=== PATIENT | male | born 1955 | race Caucasian/White ===

== ENCOUNTER 2020-02-04 16:49 | Inpatient (IN) | payer MEDICARE, MEDICAID, SELFPAY ==
[2020-02-04 16:57] VITALS: BP 190/99; PULSE 68; RESP 16; TEMP 36.6; O2SAT 96; BMI 30.7
--- NOTE | 2020-02-04 19:01 | ECG_ITS ---
Measurements Intervals [place] Rate: 62 P: 31 [place]: 172 QRS: -22 QRSD: 132 T: 51 QT: 417 QTc: 425 SINUS RHYTHM INTRAVENTRICULAR CONDUCTION DELAY [130+ ms QRS DURATION] POSSIBLE LEFT VENTRICULAR HYPERTROPHY [VOLTAGE CRITERIA PLUS LAE OR QRS WIDENING] POSSIBLE SEPTAL MYOCARDIAL INFARCTION , OF INDETERMINATE AGE [30 ms Q WAVE IN V1 V1/V2] Compared to ECG 08/20/2015 01:08:13 Intraventricular conduction delay now present Myocardial infarct finding now present Sinus tachycardia no longer present Electronically Signed On 02-05-2020 19:44:33 CDT by Jennifer Aleman M.D. [email or web address]
--- NOTE | 2020-02-04 19:01 | XR_ITS ---
WS: [id number] PORTABLE CHEST HISTORY: cp COMPARISON: 08/28/2015 Chronic emphysema. No pneumonia. Normal vasculature. No pleural effusion or pneumothorax. Cardiac size: Normal. Mediastinum/Aorta: Normal mediastinum. No osseous abnormality seen. XR/XR chest 1V portable [id number] IMPRESSION: Chronic emphysema. No pneumonia.
[2020-02-04 19:55] LABS: Basophils % 0.4 %; Eosinophils # 0.2 10^3/uL (0.0-0.8); Eosinophils % 2.5 %; Hematocrit 46.8 % (42.0-52.0); Hemoglobin 15.5 g/dL (11.7-16.6); Lymphocytes # 1.5 10^3/uL (0.8-4.8); Lymphocytes % 18.3 %; Mean Corpuscular HGB Conc 33.1 g/dL (30.0-36.0); Mean Corpuscular Hemoglobin 28.3 pg (28.0-34.0); Mean Corpuscular Volume 85.4 fL (80-94); Monocytes # 0.6 10^3/uL (0.2-0.9); Monocytes % 6.9 %; Neutrophils % 71.3 %; Nucleated Red Blood Cells % 0 %; Platelet Count 272 10^3/cmm (130-400); Red Blood Count 5.48 10^6/uL (4.1-5.3); White Blood Count 8.4 10^3/uL (4.0-10.0)
[2020-02-04 19:59] LABS: INR 0.91 (0.8-1.2)
[2020-02-04 20:05] LABS: Alanine Aminotransferase 24 U/L (0-41); Albumin Level 4.5 g/dL (3.5-5.2); Alkaline Phosphatase 68 IU/L (40-130); Anion Gap 17.1 (5-19); Aspartate Amino Transferase 33 U/L (0-40); Blood Urea Nitrogen 12 mg/dL (8-23); Calcium 9.2 mg/dL (8.5-10.5); Carbon Dioxide 21 mmol/L (22-29); Chloride 101 mmol/L (98-107); Glomerular Filtration Rate 97.6 mL/min (90-130); Glucose 94 mg/dL (65-115); Osmolality Calculated 276 mOsm/kg (285-295); Potassium 4.1 mmol/L (3.5-5.1); Sodium 135 mmol/L (136-145); Total Bilirubin 0.5 mg/dL (0.15-1.2); Total Protein 7.5 g/dL (6.6-8.7)
[2020-02-04 20:16] LABS: Troponin(5th) Baseline 143 ng/mL (0-15)
--- NOTE | 2020-02-04 20:41 | ED_ITS ---
HPI - Chest Pain General: Chief Complaint: Chest Pain Stated Complaint: CHEST PAINS Time Seen by Provider: 02/04/20 20:26 Source: patient Mode of arrival: ambulatory Limitations: no limitations History of Present Illness: HPI narrative: 64-year-old male who states he had chest pain throughout the day. He states is been fairly constant radiates to his left arm. He has no heart history that he knows of. He states he is a long-term smoker. He denies any known history of high blood pressure. MD complaint: chest pain Onset (ago): hour(s) Onset: during rest Pain location: substernal Pain radiation: left arm Severity: moderate Quality: aching Relieving factors: nothing Exacerbating factors: nothing Associated symptoms: Deny abdominal pain, dyspnea, fever(s), nausea or vomiting Review of Systems Const: Denies: fever, chills, body aches or change in appetite Eyes: Denies: blurry vision or eye discomfort ENMT: Denies: throat pain or dental pain Card: Reports: chest pain Resp: Denies: shortness of breath GI: Denies: abdominal pain, nausea, vomiting or diarrhea : Denies: painful urination Musc: Denies: neck pain or back pain Skin/Breast: Denies: rash Neuro: Denies: headache Psych: Denies: depression Tino/Lymph: Denies: easy bruising All/Imm: Denies: hives PFSH ED PFSH: Medical History Benign prostatic hyperplasia with lower urinary tract symptoms Eczema of lower extremity Hypothyroid Surgical History H/O colectomy 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,4th,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 Family History Brother CAD (coronary artery disease) Cancer Pancreatic Mother Dementia Alzheimers Social History Smoking and tobacco status: current every day smoker Alcohol intake: never Physical Exam Const: COMMON NORMALS: no apparent distress, oriented x3 and healthy appearing HENMT: COMMON NORMALS: normocephalic and head/scalp atraumatic HEAD & SCALP: normocephalic and atraumatic Eye: COMMON NORMALS: PERRL and EOMs intact bilaterally PUPIL: Yes PERRL Neck/C-Spine: COMMON NORMALS: full ROM and supple Chest: COMMONS NORMALS: inspection of chest normal and palpation of chest normal Resp: COMMON NORMALS: normal respiratory effort, no retractions, no use of accessory muscles and clear to auscultation bilaterally AUSCULTATION: clear to auscultation bilaterally Cardio: COMMON NORMALS: regular rate, regular rhythm and no murmurs RATE: regular rate RHYTHM: regular rhythm GI: COMMON NORMALS: normal to inspection, nondistended, normoactive bowel sounds, soft to palpation, non-tender and no masses PALPATION: Yes soft Extremity: COMMON NORMALS: normal to inspection and full ROM Neuro: COMMON NORMALS: oriented x3, moves all extremities and no focal motor deficits Psych: COMMON NORMALS: mental status grossly normal, thought process normal and cooperative THOUGHT PROCESS: normal thought process Skin: COMMON NORMALS: no rashes or lesions noted and no wounds GENERAL SKIN EXAM: no rashes or lesions noted Course Vital Signs: Vital signs: Vital Signs Temperature 97.8 F 02/04/20 16:57 Pulse Rate 68 02/04/20 16:57 Respiratory Rate 16 02/04/20 16:57 Blood Pressure 190/99 02/04/20 16:57 Pulse Oximetry 96 02/04/20 16:57 MDM - Chest Pain MDM Narrative: Medical decision making narrative: Patient presents here with chest pain and mildly elevated troponin with possible N STEMI. Patient given aspirin here along with Lovenox. I spoke to hospitalist will admit. I also consulted cardiology. He is currently pain-free here and has been seen by the hospitalist Dr. Evans in the ER. Patient has no signs of pulmonary embolism. Lab Data: Labs: Lab Results 02/04/20 02/04/20 02/04/20 Range/Units 19:18 19:18 19:18 WBC 8.4 (4.0-10.0) 10^3/ uL RBC 5.48 H (4.1-5.3) 10^6/u L Hgb 15.5 (11.7-16.6) g/dL Hct 46.8 (42.0-52.0) % MCV 85.4 (80-94) fL MCH 28.3 (28.0-34.0) pg MCHC 33.1 (30.0-36.0) g/dL RDW 14.0 (12.1-15.1) % Plt Count 272 (130-400) 10^3/c mm MPV 10.0 (7.4-10.4) fL Neut % (Auto) 71.3 % Lymph % (Auto) 18.3 % Sebastian % (Auto) 6.9 % Eos % (Auto) 2.5 % Baso % (Auto) 0.4 % Neut # (Auto) 6.0 (1.8-7.7) 10^3/u L Lymph # (Auto) 1.5 (0.8-4.8) 10^3/u L Sebastian # (Auto) 0.6 (0.2-0.9) 10^3/u L Eos # (Auto) 0.2 (0.0-0.8) 10^3/u L Baso # (Auto) 0.0 (0.0-0.1) 10^3/u L Nucleated RBC % (a uto) 0 % Nucleated RBCs # 0.0 /100WBC PT 12.50 (10.5-13.3) SECO NDS INR 0.91 (0.8-1.2) Sodium 135 L (136-145) mmol/L Potassium 4.1 (3.5-5.1) mmol/L Chloride 101 (98-107) mmol/L Carbon Dioxide 21 L (22-29) mmol/L Anion Gap 17.1 (5-19) BUN 12 (8-23) mg/dL Creatinine 0.8 (0.7-1.2) mg/dL GFR Calculation 97.6 (90-130) mL/min Glucose 94 (65-115) mg/dL Calculated Osmolal ity 276 L (285-295) mOsm/k g Calcium 9.2 (8.5-10.5) mg/dL Total Bilirubin 0.5 (0.15-1.2) mg/dL AST 33 (0-40) U/L ALT 24 (0-41) U/L Alkaline Phosphata se 68 (40-130) IU/L Troponin T Baselin e (0-15) ng/mL Troponin T 120 Min [place] (0-15) ng/mL Delta Troponin T (0-10) ABS# Total Protein 7.5 (6.6-8.7) g/dL Albumin 4.5 (3.5-5.2) g/dL Globulin 3.0 (1.3-4.6) g/dL 02/04/20 02/04/20 Range/Units 19:18 20:54 WBC (4.0-10.0) 10^3/ uL RBC (4.1-5.3) 10^6/u L Hgb (11.7-16.6) g/dL Hct (42.0-52.0) % MCV (80-94) fL MCH (28.0-34.0) pg MCHC (30.0-36.0) g/dL RDW (12.1-15.1) % Plt Count (130-400) 10^3/c mm MPV (7.4-10.4) fL Neut % (Auto) % Lymph % (Auto) % [place] % (Auto) % Eos % (Auto) % Baso % (Auto) % Neut # (Auto) (1.8-7.7) 10^3/u L Lymph # (Auto) (0.8-4.8) 10^3/u L Sebastian # (Auto) (0.2-0.9) 10^3/u L Eos # (Auto) (0.0-0.8) 10^3/u L Baso # (Auto) (0.0-0.1) 10^3/u L Nucleated RBC % (a uto) % Nucleated RBCs # /100WBC PT (10.5-13.3) SECO NDS INR (0.8-1.2) Sodium (136-145) mmol/L Potassium (3.5-5.1) mmol/L Chloride (98-107) mmol/L Carbon Dioxide (22-29) mmol/L Anion Gap (5-19) BUN (8-23) mg/dL Creatinine (0.7-1.2) mg/dL GFR Calculation (90-130) mL/min Glucose (65-115) mg/dL Calculated Osmolal ity (285-295) mOsm/k g Calcium (8.5-10.5) mg/dL Total Bilirubin (0.15-1.2) mg/dL AST (0-40) U/L ALT (0-41) U/L Alkaline Phosphata se (40-130) IU/L Troponin T Baselin e 143 H* (0-15) ng/mL Troponin T 120 Min [place] 291.4 H (0-15) ng/mL Delta Troponin T 148.4 H* (0-10) ABS# Total Protein (6.6-8.7) g/dL Albumin (3.5-5.2) g/dL Globulin (1.3-4.6) g/dL Imaging Data^: CXR: Attestation: I personally reviewed and interpreted this imaging study as follows: My impression: no acute abnormality EKG Data^: EKG 1: Attestation: I personally reviewed and interpreted this EKG as follows: EKG interpretation date: 02/04/20 EKG interpretation time: 19:04 Interpretation: sinus guadalupe hr [address] or t wave abnormalities qrs 132 qtc 410 Discharge Plan Discharge Patient Disposition: Admitted As Inpatient Clinical Impression: Non-ST elevation [place] (NSTEMI) Condition: Stable Referrals: Megan Cosme DO [Primary Care Provider] - Coding Level of Care Code ED Surgical Assistant for Chg Fwd Exam Comprehensive
--- NOTE | 2020-02-04 21:01 | ECG_ITS ---
Measurements Intervals [place] Rate: 52 P: 39 [place]: 183 QRS: -9 QRSD: 116 T: 17 QT: 432 QTc: 405 SINUS BRADYCARDIA MODERATE VOLTAGE CRITERIA FOR LVH, CONSIDER NORMAL VARIANT [MEETS CRITERIA IN ONE OF: R(aVL), S(V1), R(V5), R(V5/V6)+S(V1)] POSSIBLE SEPTAL MYOCARDIAL INFARCTION , OF INDETERMINATE AGE [30 ms Q WAVE IN V1/V2] Compared to ECG 08/20/2015 01:08:13 Myocardial infarct finding now present Sinus tachycardia no longer present Electronically Signed On 02-05-2020 19:47:08 CDT by Jennifer Aleman M.D. [id number]
[2020-02-04] MEDS: aspirin 81 mg Chew Tablet 324 MG PO (21:30)
[2020-02-04] MEDS: enoxaparin 100 mg/mL Syringe SUBCUT (21:31)
[2020-02-04 21:35] LABS: Troponin 5 2HR 291.4 ng/mL (0-15); Troponin 5 2HR Delta 148.4 ABS# (0-10)
[2020-02-04] MEDS: nitroglycerin 0.4 mg sublingual Tablet SUBLINGUAL (21:35)
[2020-02-04 21:41] VITALS: BP 190/101; PULSE 60; RESP 19; O2SAT 94
[2020-02-04 22:02] VITALS: BP 175/91; PULSE 54; RESP 18; O2SAT 94
--- NOTE | 2020-02-04 22:29 | PM.CONSULT ---
Providers/Reason For Consult Consulting Physican/Specialty*: Cardiology Reason for Consult*: Non-ST elevation [place], hypertensive urgency Primary Care Provider: Megan Cosme DO History of Present Illness History of Present Illness Lennox Petty is a 64 year old male presented to emergency room with chest pain going on since this morning on presentation generation 5 troponin was 143 which increased to 148 and 291. He was given Lovenox and treated with aspirin. Twelve-lead EKG showed sinus bradycardia otherwise no significant ST?T changes. Currently chest pain has reduced on a scale of 10 to 2. Patient is a smoker but denies history of diabetes his blood pressure is moderately elevated. Other past medical history significant for hypothyroidism. He denies any prior episodes of chest pain. He denies prior history of heart problem out of your shortness of breath presyncope or syncope. He denies history of dyslipidemia. Review of Systems Const: Denies: fever, chills, body aches or change in appetite Eyes: Denies: blurry vision or eye discomfort ENMT: Denies: throat pain or dental pain Card: Reports: chest pain Resp: Denies: shortness of breath GI: Denies: abdominal pain, nausea, vomiting or diarrhea : Denies: painful urination Musc: Denies: neck pain or back pain Skin/Breast: Denies: rash Neuro: Denies: headache Psych: Denies: depression or sleeping more Tino/Lymph: Denies: easy bruising All/Imm: Denies: hives Meds/Allergies Home Medications and Allergies Home Medications Medication Instructions Recorded Confirmed Last Taken Type levothyroxine 100 mcg capsule 100 mcg PO QDAY 30 Days #30 cap 10/31/19 10/31/19 Unknown Rx omega-3 fatty acids 1,000 mg 1,000 mg PO DAILY 10/31/19 10/31/19 Unknown History capsule tamsulosin 0.4 mg capsule 0.4 mg PO QDAY 30 Days #30 cap 10/31/19 10/31/19 Unknown Rx triamcinolone acetonide 0.1 % 1 applic TOPICAL BID #30 gm 10/31/19 10/31/19 Unknown Rx topical cream Allergies Allergy/AdvReac Type Severity Reaction Status Date / Time codeine Allergy unknown Unverified 10/22/19 16:35 PFSH Acute PFSH: Medical History (Updated 02/04/20 @ 22:36 by Jennifer Aleman MD) Benign prostatic hyperplasia with lower urinary tract symptoms Eczema of lower extremity Essential hypertension Hypothyroid Surgical History H/O colectomy 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 NECK: No jugular vein distension. HEENT: No cyanosis. No icterus. No pallor. HEART: Regular S1 and S2. No murmur, rub or gallop. LUNGS: Clear to auscultate bilaterally. ABDOMEN: Soft, nontender and nondistended. Positive bowel sounds. No guarding, rebound or tenderness. CENTRAL NERVOUS SYSTEM: Grossly nonfocal. EXTREMITIES: Lower extremities without edema bilaterally. Data Labs: Other Labs: SINUS BRADYCARDIA MODERATE VOLTAGE CRITERIA FOR LVH, CONSIDER NORMAL VARIANT [MEETS CRITERIA IN ONE OF: R(aVL), S(V1), R(V5), R(V5/V6)+S(V1)] POSSIBLE SEPTAL MYOCARDIAL INFARCTION , OF INDETERMINATE AGE [30 ms Q WAVE IN V1/V2] Compared to ECG 08/20/2015 01:08:13 Myocardial infarct finding now present Sinus tachycardia no longer present A&P Assessment and plan (1) Non-ST elevation VT (NSTEMI): Patient presentation consistent with non-ST elevation VT. Currently is chest pain-free we will try to control his blood pressure. I will load him with Plavix he has already been given Lovenox. We will add statin to the regimen due to be bradycardia beta-suleiman is not warranted. I am planning to proceed with coronary angiogram tomorrow. Patient has been discussed all risk benefit and alternative for the procedure. He would like to proceed with it. Status: Acute (2) Essential hypertension: Blood pressure is moderately elevated it was 190 and then 175. I will keep him on nitro drip which will also control his blood pressure along with chest pain. Status: Acute Coding Level of Care Code New Pt Acute Supervisor Cytogenetic Laboratory for g Fwd Patient Type New History Detailed Exam Detailed Medical Decision Making Moderate Complexity Diagnoses Non-ST elevation VT (NSTEMI) I21.4 Essential hypertension I10
[2020-02-04] MEDS: clopidogrel 300 mg Tablet PO (23:18)
[2020-02-04] MEDS: nitroglycerin 1 gm/inch oint Pkt 1 INCH TOPICAL (23:18)
[2020-02-04 23:20] VITALS: BP 149/74; PULSE 56; RESP 20; O2SAT 95
--- NOTE | 2020-02-04 23:26 | PM.HP ---
Providers/Chief Complaint Primary Care Provider: Megan Cosme DO Chief Complaint: CHEST PAINS History of Present Illness Lennox Petty is a 64 year old male with past medical history of GERD, BPH, hypertension, hypothyroidism who is presenting with complaints of substernal chest pain. Chest pain started this morning suddenly. Substernal, described as pressure moderate to severe in intensity. No modifying factors. He reports associated heartburn and burping. Denies any similar episodes in the past. He reports family history of heart disease. He is a smoker. He denies associated diaphoresis, shortness of breath, cough, palpitations, dizziness or lightheadedness. Review of Systems General: Reports: 10 or more systems reviewed and unremarkable except in HPI and below Medications/Allergies Home Medications Medication Instructions Recorded Confirmed Last Taken Type levothyroxine 100 mcg capsule 100 mcg PO QDAY 30 Days #30 cap 10/31/19 10/31/19 Unknown Rx omega-3 fatty acids 1,000 mg 1,000 mg PO DAILY 10/31/19 10/31/19 Unknown History capsule tamsulosin 0.4 mg capsule 0.4 mg PO QDAY 30 Days #30 cap 10/31/19 10/31/19 Unknown Rx triamcinolone acetonide 0.1 % 1 applic TOPICAL BID #30 gm 10/31/19 10/31/19 Unknown Rx topical cream Allergies Allergy/AdvReac Type Severity Reaction Status Date / Time codeine Allergy unknown Unverified 10/22/19 16:35 PFSH Acute PFSH: Medical History (Updated 02/04/20 @ 22:36 by Jennifer Aleman MD) Benign prostatic hyperplasia with lower urinary tract symptoms Eczema of lower extremity Essential hypertension Hypothyroid Surgical History H/O colectomy 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,4th,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0) 02/04/20 19:18 MCV 85.4 fL (80-94) 02/04/20 19:18 MCH 28.3 pg (28.0-34.0) 02/04/20 19:18 MCHC 33.1 g/dL (30.0-36.0) 02/04/20 19:18 RDW 14.0 % (12.1-15.1) 02/04/20 19:18 Plt Count 272 10^3/cmm (130-400) 02/04/20 19:18 MPV 10.0 fL (7.4-10.4) 02/04/20 19:18 Neut % (Auto) 71.3 % 02/04/20 19:18 Lymph % (Auto) 18.3 % 02/04/20 19:18 [place] % (Auto) 6.9 % 02/04/20 19:18 Eos % (Auto) 2.5 % 02/04/20 19:18 Baso % (Auto) 0.4 % 02/04/20 19:18 Neut # (Auto) 6.0 10^3/uL (1.8-7.7) 02/04/20 19:18 Lymph # (Auto) 1.5 10^3/uL (0.8-4.8) 02/04/20 19:18 [place] # (Auto) 0.6 10^3/uL (0.2-0.9) 02/04/20 19:18 Eos # (Auto) 0.2 10^3/uL (0.0-0.8) 02/04/20 19:18 Baso # (Auto) 0.0 10^3/uL (0.0-0.1) 02/04/20 19:18 Nucleated RBC % (auto) 0 % 02/04/20 19:18 Nucleated RBCs # 0.0 /100WBC 02/04/20 19:18 PT 12.50 SECONDS (10.5-13.3) 02/04/20 19:18 INR 0.91 (0.8-1.2) 02/04/20 19:18 Sodium 135 mmol/L (136-145) L 02/04/20 19:18 Potassium 4.1 mmol/L (3.5-5.1) 02/04/20 19:18 Chloride 101 mmol/L (98-107) 02/04/20 19:18 Carbon Dioxide 21 mmol/L (22-29) L 02/04/20 19:18 Anion Gap 17.1 (5-19) 02/04/20 19:18 BUN 12 mg/dL (8-23) 02/04/20 19:18 Creatinine 0.8 mg/dL (0.7-1.2) 02/04/20 19:18 GFR Calculation 97.6 mL/min (90-130) 02/04/20 19:18 Glucose 94 mg/dL (65-115) 02/04/20 19:18 Calculated Osmolality 276 mOsm/kg (285-295) L 02/04/20 19:18 Calcium 9.2 mg/dL (8.5-10.5) 02/04/20 19:18 Total Bilirubin 0.5 mg/dL (0.15-1.2) 02/04/20 19:18 AST 33 U/L (0-40) 02/04/20 19:18 ALT 24 U/L (0-41) 02/04/20 19:18 Alkaline Phosphatase 68 IU/L (40-130) 02/04/20 19:18 Troponin T Baseline 143 ng/mL (0-15) H* 02/04/20 19:18 Troponin T 120 Minute 291.4 ng/mL (0-15) H 02/04/20 20:54 Delta Troponin T 148.4 ABS# (0-10) H* 05/11/20 20:54 Total Protein 7.5 g/dL (6.6-8.7) 02/04/20 19:18 Albumin 4.5 g/dL (3.5-5.2) 02/04/20 19:18 Globulin 3.0 g/dL (1.3-4.6) 02/04/20 19:18 Lungs seem to be clear on chest x-ray. Please review official radiology report when it is available. EKG. No acute ischemic changes. Mild bradycardia. LVH. A&P Additional A&P Information Non-ST elevation [place]. The patient has elevated troponin. Was seen and evaluated by Dr. Aleman. I appreciate his help. The patient is given aspirin and loaded with Plavix and full dose of Lovenox. He will undergo cardiac catheterization tomorrow morning. I am also ordering Lipitor. Fasting lipids in the morning. Beta-suleiman is not feasible at this time due to bradycardia. Uncontrolled hypertension. I will order as needed hydralazine. Maintenance medications will be considered tomorrow after his procedure. History of BPH. We will continue his home Flomax. History of hypothyroidism. We will continue home Synthroid. We will check his TSH level. DVT prophylaxis. Received full dose of Lovenox. CODE STATUS. He wants to be full code. The plan of care was discussed with the patient. He verbalized understanding and agreement. Attestations Medical Necessity Statement*: Observation Coding Level of Care Code Acute Cost Estimator for Gerry Ivey
[2020-02-04 23:30] VITALS: RESP 20
[2020-02-05] VITALS (28 sets, daily range): BP systolic 96–151; BP diastolic 51–80; PULSE 48–68; RESP 16–22; TEMP 36.7–37.1; O2SAT 90–98
[2020-02-05 01:42] LABS: Basophils % 0.3 %; Eosinophils # 0.2 10^3/uL (0.0-0.8); Eosinophils % 2.6 %; Hematocrit 42.2 % (42.0-52.0); Hemoglobin 14.1 g/dL (11.7-16.6); Lymphocytes # 1.4 10^3/uL (0.8-4.8); Lymphocytes % 20.7 %; Mean Corpuscular HGB Conc 33.4 g/dL (30.0-36.0); Mean Corpuscular Hemoglobin 28.5 pg (28.0-34.0); Mean Corpuscular Volume 85.3 fL (80-94); Mean Platelet Volume 9.9 fL (7.4-10.4); Monocytes # 0.4 10^3/uL (0.2-0.9); Neutrophils # 4.7 10^3/uL (1.8-7.7); Neutrophils % 69.8 %; Nucleated Red Blood Cells % 0 %; Platelet Count 249 10^3/cmm (130-400); Red Blood Count 4.95 10^6/uL (4.1-5.3); Red Cell Distribution Width 14.2 % (12.1-15.1); White Blood Count 6.7 10^3/uL (4.0-10.0)
[2020-02-05 01:59] LABS: Estmated Average Glucose 126
[2020-02-05 02:00] LABS: Anion Gap 16.1 (5-19); Blood Urea Nitrogen 13 mg/dL (8-23); Calcium 9.1 mg/dL (8.5-10.5); Carbon Dioxide 24 mmol/L (22-29); Chloride 104 mmol/L (98-107); Glomerular Filtration Rate 97.6 mL/min (90-130); Glucose 97 mg/dL (65-115); Magnesium 2.3 mg/dL (1.7-2.3); Osmolality Calculated 286 mOsm/kg (285-295); Potassium 4.1 mmol/L (3.5-5.1); Sodium 140 mmol/L (136-145)
[2020-02-05 02:01] LABS: Chol HDL Ratio 4.33 mg/dL (1.0-5.00); Cholesterol 117 mg/dL (0-200); HDL Cholesterol 27 mg/dL (60-100); LDL Cholesterol Calculated 43 mg/dL (50-129); LDL HDL Ratio 1.59 RATIO (0.00-3.22); Triglycerides 235 mg/dL (0-150)
[2020-02-05 02:07] LABS: Troponin 5 6HR 563.6 ng/mL (0-15)
[2020-02-05 02:08] LABS: Troponin 5 6HR Delta 420.6 ng/L (0-12)
[2020-02-05 02:59] LABS: Thyroid Stimulating Hormone 4.66 uIU/mL (0.27-4.20)
[2020-02-05] MEDS: diphenhydrAMINE 50 mg Capsule PO (07:48)
[2020-02-05] MEDS: sodium chloride 0.9% 1,000 ML 50 ML IV (07:48)
[2020-02-05] MEDS: tamsulosin 0.4 mg Capsule PO (08:19)
[2020-02-05] MEDS: atorvastatin 40 mg Tablet 80 MG PO (08:19)
[2020-02-05] MEDS: levothyroxine 100 mcg Tablet PO (08:19)
--- NOTE | 2020-02-05 08:30 | XACV_ITS ---
Exam Room: [facility] Ht: 180 cm Wt: 100 kg BSA: 2.26 m2 Gender: Male : 1955 Any Known Allergies: Codeine Exam Priority: Routine Indication(s): - NSTEMI Procedure(s): Procedure Description: Diagnostic procedure Procedure Description: PCI procedure Procedure Description: Drug Eluting Coronary Stent Procedure Description: Coronary Angiography Diagnostic Findings LM has 0% stenosis. LAD has 0% stenosis. CX has 0% stenosis. RCA has 0% stenosis. 1st Diagonal Coronary Artery: Severe 99% stenosis, ODALYS: 1 flow. Coronary angiography shows right dominance. PCI Status: Urgent PCI Indication: NSTE - ACS Interventional Findings Successful PCI to proximal diagonal-1. Lesion was prepared with 2.25 x 15 mm AB TREK balloon, followed by deployment of COLLETTE INTEGRITY 2.5 x 12 mm stent posted at high GUICHO of 14. Stent was then post-dilated with serial dilatation of NC EUPHORA 2.5 x 8 at 8ATM in its entire length to ensure proper approximation. Excellent angiographic result with ODALYS-3 flow was achieved. . Conclusions No significant disease noted in the Left Main, LAD, Circumflex, or RCA coronary arteries. 1st Diagonal Coronary Artery was successfully treated with . Recommendations 1-Return to inpatient for close monitoring and routine cath care 2-Risk factor modification for secondary prevention 3-Statin and aspirin 81 mg life--long, if tolerated 4-Continue Plavix 75mg p.o. daily for at least one year. We will assess at the end of one year again to continue if further or not 5-Continue optimal medical management 6-Follow up with Dr. Aleman in four weeks and your primary care in 10 days . Diagnostic RX Recommendation: PCI w/o planned CABG Pressures Phase:Rest AO : 116 mmHg / 77 mmHg ( 94 mmHg ) @ 5:55:00 AM Clinical Evaluation EBL: 5mL-10mL Procedural Details Procedure Consent Obtained. Pre-Procedure Time Out. Identified patient by full name and date of as verbalized by the patient/guarantor. Does the consent match the physician's order: Yes. Accurate & Complete Informed Consent: Yes. Inpatient/Outpatient History & Physical on Chart: Yes. If H&P is completed, is and addenduem needed: Yes; If yes, is the addendum complete: Yes. Visualize and Verify Site with Patient/Guarantor: N/A. Relevant Radiology Images available: N/A. Pre-op teaching completed and patient verbalized understanding. The risks, benefits, and alternatives of sedation and/or procedure were discussed by physician. The patient agrees to continue. Procedure started. [facility] Clinical Fraility Score: 3: Managing Well. Nutritionist Indications: ACS <= 24 hours. Chest Pain Symptom Assessment: Typical Angina Symptoms. Cardiovascular Instability: No,. Correct patient, site and procedure confirmed by cath team. Current diagnosis: NSTEMI. PERRLA. Strong, equal hand event promotions coordinator bilaterally. Lungs clear x 5 lobes. IV Site on Arrival: 20 gauge in the left forearm. Pre Procedural Pulses: bilateral dorsalis pedis was Doppled. Pre Procedural Pulses: bilateral posterior tibial was Doppled. Oxygen started at 2liters/min via nasal canula. right radial was prepped with chloroprep then draped in the usual sterile fashion. Baseline sample Acquired. HR: 52 BPM. Physician notified. Patient's family unavailable. Equipment: 6F - Radial. Physician arrived. Cardiac Cath Pack. ACIST Manifold Kit Model BT 2000. Heparinized Saline (2 units/mL), 1000 mL bag. Current Diagnosis : NSTEMI. Physician scrubbed in. Immediate Pre-Procedure Time Out. Correct Patient: Yes; Correct Procedure: Yes; Correct Site: Yes; Correct Patient Position: Yes; Correct Supplies: Yes; Dried Flammable Prep: Yes; Blood Products Available: N/A;. Lidocaine 1% infiltrated to the right radial. Arterial access obtained. A TR 5FR Radial TIG 4.0 110cm was advanced over the wire and used for Left coronary angiography. Multiple views taken of left coronary artery. Catheter redirected to the RCA. Multiple views taken of right coronary artery. Catheter out. Inventory is [facility] 6 FR XB 3.5 GUIDE. PCI Indication: NSTE. 6 bermudian XB 3.5 guide catheter was inserted over the wire. [place] repositioned to [facility]. Balloon inserted. Inflation number : 1 A AB TREK [id number] RX BALLOON was prepped and advanced across the 1st Diag , then inflated to 15 GUICHO for 0:15 seconds. Balloon removed. Stent inserted. Inflation Number : 2 A [place] COLLETTE 2.5X12 SHANE -Lot Number# [id number], exp12/17/2020 was prepped and advanced across the 1st Diag. The stent was deployed at 14 GUICHO for 0:23 seconds. Stent balloon removed. Balloon inserted. Inflation number : 3 A [place] EUPHORA RX [id number] BALLOON was prepped and advanced across the 1st Diag , then inflated to 8 GUICHO for 0:12 seconds. Balloon out. Results checked. Wire out. ACT drawn. Results 195 seconds. Therapeutic limits - pre-heparin administration 90-150 seconds and monitoring heparin during a vascular procedure >250 seconds. Guide catheter out. A TR Band was successful obtaining hemostatsis at the Right Radial artery insertion site. TR band placed. Hemostasis obtained. Post Procedure: Pulses reassessed and unchanged. PERRLA. Strong, equal hand event promotions coordinator bilaterally. No VTE prophylaxis required. Medication's Wasted: Lidocaine 1% = 18 mL. Medication's Wasted: Nitro = 49.6 mg. Medication's Wasted: Other = Versed 1 mg. Medication's Wasted: Other = Fentanyl 50 mcg. Total IV fluids: 75 mL. Fluoro: 7:55. Contrast type used: Visipaque 320 mgI/mL, 500 mL bottle. [id number]. Post-op diagnosis: NSTEMI. Complications: None. Estimated blood loss: 5mL-10mL. Procedure completed. Patient transferred by wheelchair to [address] [place] [address]. Site: Right Radial artery Sheath Size: 6 Fr Hemostasis Method: TR Band Hemostasis Success: Successful Procedure Medications Start: 10:41 AM Stop: 10:41 AM Medication: Versed Amount: 1 mg Route: I.V. Start: 10: AM Stop: 10: AM Medication: Fentanyl Amount: 50 mcg Route: I.V. Start: 10: AM Stop: : AM Medication: Versed Amount: 1 mg Route: I.V. Start: 10: AM Stop: : AM Medication: Fentanyl Amount: 50 mcg Route: I.V. Start: 10:54 AM Stop: :54 AM Medication: Heparin Amount: 5000 units Route: I.V. Start: 11:00 AM Stop: 11:00 AM Medication: Heparin Amount: 4000 units Route: I.V. Start: 11:17 AM Stop: 11:17 AM Medication: Nitrogylcerin Amount: 200 mcg Route: I.A. Start: 11:19 AM Stop: 11:19 AM Medication: Versed Amount: 1 mg Route: I.V. Start: 11:19 AM Stop: 11:19 AM Medication: Fentanyl Amount: 50 mcg Route: I.V. Start: 11:25 AM Stop: 11:25 AM Medication: Heparin Amount: 2000 units Route: I.V. I, the attending physician, have reviewed and verified all procedure medications. Yes, all medications given per verbal order History/Risk Factors Hypertension: Yes Dyslipidemia: No Peripheral Arterial Disease (PAD): No Myocardial Infarction (NE): No Obesity: No Prior Interventions Valve Surgery: No Report Signatures Finalized by:Jennifer Aleman MD on 02/19/2020 12:33:18 PM
--- NOTE | 2020-02-05 11:16 | PC.CHAP ---
Pastoral Care Encounter/Spiritual Assessment Type of Contact [] Declined recycle coordinator visit [] Patient/Family/Request visit [] Outpatient visit [] Follow-up visit [] Physician referral [] Code/Alert [x] Routine visit [] Staff referral [] Actively dying [] Patient sleeping [] Family support [] [] Out of room [] Palliative care [] [x] Receiving care in room [] Pre-surgical visit [] Trauma [] Long length of stay [] ICU visit [] Other: Relational/Emotional Strength [x] Patient feels connected with others/family/visitors/staff [] Distress [] Loneliness/isolation [] Abandonment Spirituality of Patient [x] Person of Meche [] Attends Cheondoism of their Meche [x] Believes in Prayer [] Reads Bible or Protestant materials [] There are Spiritual issues to be addressed Rail Layer Interventions [x] Prayer [x] Active listening [x] Non-anxious presence [x] Spiritual/emotional support [] Crisis/trauma care [x] Spiritual counseling [] Bereavement support [] Provided bereavement packet [] Provided Bible/devotional materials [] Provided toy/stuffed animal, coloring book to patient or family member [] Provided Communion [] Anointing/[place] [] Salvation [x] Completed spiritual assessment [] Other: Impact on Illness or Injury [] Angry [] Fearful [x] Anxious [] Often cries [] Exhaustion [] Unable to work [] Unable to attend restorationist [] Unable to walk/stand [] Unable to read [] Unable to drive [] Unable to eat/drink [] Unable to sleep [] Unable to be with family [] Patient intubated [] Other: Summary Chest pain, Will get tests done today, not sure what needs to be done, has a good attitude Time spent with patient 10 mins
--- NOTE | 2020-02-05 11:25 | W.PM.OPSUD ---
Surgery/Procedure H&P Update DATE OF PROCEDURE: February 05, 2020 DATE H&P PERFORMED: 02/05/20 H&P UPDATE INFORMATION: I have reviewed H&P completed within last 30 days, I have examined patient prior to procedure and No changes to prior documentation PLANNED PROCEDURE: Operation Date: 02/05/20 08:30 Proposed Procedures p Cardiac Catheterization(Not Applicable) - Jennifer Aleman MD PATIENT REASSESSED PRIOR TO SEDATION, WITH NO CHANGE NOTED: Yes PHYSICAL EXAM: alert, oriented x 3, clear to auscultation bilaterally and regular rate & rhythm AIRWAY EVAL/ANESTHESIA PLAN: normal airway, see other exam findings, ASA II and Risks, benefits & alternatives of sedation and/or procedure discussed Related Problem List Diagnoses (1) Non-ST elevation [place] (NSTEMI): (2) Essential hypertension:
--- NOTE | 2020-02-05 11:34 | P.PN_ITS ---
Subjective Subjective: Interval history: Status post morning angiogram found to have subtotally occluded 99% proximal moderate size and caliber diagonal 1 which was a culprit vessel treated with balloon angioplasty followed by 2.5 x 12 mm drug- eluting stent. Patient tolerated procedure well and transferred to [facility] unit Medications: Reviewed: Yes Vitals/I&O/Wt Last Vital Signs Temp 98.0 F 02/05/20 07:41 Pulse 52 L 02/05/20 07:41 Resp 18 02/05/20 07:41 BP 110/69 02/05/20 07:41 Pulse Ox 97 02/05/20 07:41 02/04/20 02/05/20 02/05/20 22:59 06:59 14:59 Output Total 200 / 200 Balance -200 / -200 Weight last 48 hrs Weight 220 lb Physical Exam Narrative: EXAM NARRATIVE: GENERAL: Patient is alert, awake and oriented x3. NECK: No jugular vein distension. HEENT: No cyanosis. No icterus. No pallor. HEART: Regular S1 and S2. No murmur, rub or gallop. LUNGS: Clear to auscultate bilaterally. ABDOMEN: Soft, nontender and nondistended. Positive bowel sounds. No guarding, rebound or tenderness. CENTRAL NERVOUS SYSTEM: Grossly nonfocal. EXTREMITIES: Lower extremities without edema bilaterally. Const: COMMON NORMALS: alert Resp: COMMON NORMALS: clear to auscultation bilaterally AUSCULTATION: clear to auscultation bilaterally Neuro: SENSORIUM/ORIENTATION: Yes alert Data : 02/05/20 01:20 02/05/20 01:20 A&P Assessment and plan (1) Non-ST elevation [place] (NSTEMI): Status post drug-eluting stent to proximal subtotally occluded moderate size and caliber diagonal 1 vessel as above. Reload with 300 mg of Plavix as patient already got 200 mg yesterday. Continue aspirin and statin Plavix. No beta-suleiman due to bradycardia. Will ask for echocardiogram. Status: Acute (2) Essential hypertension: I will add lisinopril to the regimen to control the blood pressure better Status: Acute (3) Tobacco abuse: Advised quitting smoking Status: Acute Attestations Medical Necessity Statement*: Patient require continuation hospitalization for above defined care. Coding Level of Care Code Established Pt Acute Residential Recycle Driver for g Fwd Patient Type Established History Expanded Problem Focused Exam Expanded Problem Focused Medical Decision Making Moderate Complexity Diagnoses Non-ST elevation [place] (NSTEMI) I21.4 Essential hypertension I10 Tobacco abuse Z72.0
--- NOTE | 2020-02-05 11:38 | USCV_ITS ---
Lennox Petty Age: 64 Gender: M : 1955 Exam Date: 02/05/2020 15:24 Ordering Phys: Jennifer Aleman MD ([email or web address]) Technologist: Wilberto Meek [place]am [place] [facility] [place] Indication: NON ST SC BP: 125 / 75 HR: 52 Rhythm: Sinus Technical Quality: Adequate MEASUREMENTS (Male / Female) Normal Values 2D ECHO LVOT Diameter 2.6 cm LV Ejection Fraction MOD 2C 72.0 % LV Ejection Fraction 2C AL 72.2 % LA Diameter 3.6 cm LA Width 3.8 cm LA Height 4.8 cm RA Width 3.4 cm RA Height 4.2 cm M-MODE LV Diastolic Diameter MM 5.8 cm 4.2 - 5.9 / 3.9 - 5.3 cm LV Systolic Diameter MM 4.2 cm LV Ejection Fraction MM Teich 52.4 % IVS Diastolic Thickness MM 1.0 cm 0.6 - 1.0 / 0.6 - 0.9 cm IVS Systolic Thickness MM 1.3 cm LVPW Diastolic Thickness MM 1.1 cm 0.6 - 1.0 / 0.6 - 0.9 cm LVPW Systolic Thickness MM 1.8 cm RV Diastolic Diameter MM 1.5 cm Aortic Annulus Diameter 3.7 cm LA Ao Ratio MM 1.0 MV E Point Septal Separation 1.0 cm DOPPLER AV Peak Velocity 137.0 cm/s LVOT Peak Velocity 87.0 cm/s AV Area Cont Eq vti 3.6 cm squared AV Area Cont Eq pk 3.4 cm squared MV Area PHT 5.0 cm squared Mitral E to A Ratio 1.4 MV E' Velocity 10.0 cm/s Mitral E to MV E' Ratio 8.5 Mitral E to LV E' Lateral Ratio 7.2 Mitral E to LV E' Septal Ratio 10.3 TR Peak Velocity 221.0 cm/s TR Peak Gradient 19.6 mmHg Right Atrial Pressure 3.0 mmHg Pulmonary Artery Systolic Pressu 22.5 mmHg FINDINGS Left Ventricle Normal left ventricular cavity size. Normal left ventricular systolic function. No regional wall motion abnormalities. Left ventricular ejection fraction is estimated at 55 %. Grade II/IV diastolic dysfunction, moderately elevated filling pressures. Right Ventricle The right ventricle is normal in size and function. Right Atrium The right atrium is normal in size. Left Atrium The left atrium is normal in size. Mitral Valve Structurally normal mitral valve without significant stenosis or prolapse. There is no mitral regurgitation. Aortic Valve Aortic valve sclerosis without stenosis or regurgitation. Tricuspid Valve Thickened tricuspid valve. Trace tricuspid valve regurgitation. Pulmonic Valve Structurally normal pulmonic valve without significant stenosis. There is no pulmonic regurgitation. Pericardium Normal pericardium without effusion. Aorta Normal ascending aorta dimension. CONCLUSIONS 1-Normal left ventricular cavity size. Normal left ventricular systolic function. No regional wall motion abnormalities. Left ventricular ejection fraction is estimated at 55 %. Grade II/IV diastolic dysfunction, moderately elevated filling pressures. 2-No significant valve abnormalities. 3-There is no pericardial effusion. 4-Pulmonary artery systolic pressure is within normal limits. 5-Right atrial pressure is around 5 mm of mercury. 6-There are no prior echocardiogram studies to compare. Jennifer Aleman MD (Electronically Signed) Final Date: 06 Feb 2020 10:51 S
[2020-02-05] MEDS: clopidogrel 300 mg Tablet PO (11:51)
--- NOTE | 2020-02-05 17:42 | PM.DCS ---
Discharge Providers Date of Admission: 02/04/20 23:18 Date of Discharge: February 05, 2020 Attending Provider at Admission: Jennifer Aleman MD Attending Provider at Discharge: An Denson MD Primary Care Provider: Megan Cosme DO Diagnoses at Discharge Discharge Diagnosis (1) Non-ST elevation NM (NSTEMI): Status: Acute (2) Essential hypertension: Status: Acute (3) CAD (coronary artery disease): Status: Acute Qualifiers: Associated angina: with unstable angina Coronary Disease-Associated Artery/Lesion type: [place] artery [place] vs. transplanted heart: [place] heart Qualified Code(s): I25.110 - Atherosclerotic heart disease of [place] coronary artery with unstable angina pectoris (4) H/O heart artery stent: Status: Acute Problem details: diagonal, 01/2020 (5) Tobacco abuse: Status: Chronic Reason for Visit Reason for Visit: Reason For Visit: CHEST PAINS Hospital Course Hospital Course: Patient is a 64-year-old gentleman who presented to the emergency room with chief complaint of chest pain. He was found to have a non-ST elevation NM. He underwent cardiac catheterization by Dr. Arango on February 04. He was found to have a 99% diagonal lesion which was stented. Post procedure he was feeling great. It was initially thought that his stay would extend beyond 2 midnights given his initial presentation. Dr. Arango however was able to do a radial approach and patient was clinically feeling much better. Medications will be adjusted including addition of aspirin, Plavix, statin therapy. No beta-blockade secondary to bradycardia. MANUELA inhibitor low-dose will be started. Patient will need to have follow-up with PCP who is Jami Thurman as well as Dr. Arango. Renal function will need to be checked and consideration given to initiation of beta-blockade down the road. Echocardiogram was done but report not available at the time of discharge. Patient was walking around without any recurrent chest pain and overall felt stable for discharge. Dr. Arango was also okay with discharge today. Reinforced with patient the need for smoking cessation and gave him an opportunity to ask questions. Physical Exam Const: OTHER: Alert, oriented x3, cooperative Resp: OTHER: Clear to auscultation bilaterally rales rhonchi or wheezes noted, no accessory muscle use noted Cardio: OTHER: Regular rate and rhythm, no murmurs gallops or rubs. Pulses euqal throughout. No bleeding noted at right radial area Psych: OTHER: Normal affect Discharge Data Data Completed and Pending: Completed Studies During Hospitalization Category Date Time Status XR chest 1V kathia ble [id number] Stat Exams 02/04/20 19:01 Completed Pending at discharge Category Date Time Status CV echo complete* [id number] Routine Ultrasound 02/05/20 11:38 Taken Labs from last 24 hours 02/05/20 02/05/20 02/05/20 01:20 01:20 01:20 WBC RBC Hgb Hct MCV MCH MCHC RDW Plt Count MPV Neut % (Auto) Lymph % (Auto) Noble % (Auto) Eos % (Auto) Baso % (Auto) Neut # (Auto) Lymph # (Auto) Noble # (Auto) Eos # (Auto) Baso # (Auto) Nucleated RBC % (a uto) Nucleated RBCs # PT INR Sodium Potassium Chloride Carbon Dioxide Anion Gap BUN Creatinine GFR Calculation Glucose Estimat Average Gl ucose 126 Hemoglobin A1c 6.0 Calculated Osmolal ity Calcium Magnesium Total Bilirubin AST ALT Alkaline Phosphata se Troponin I 6 Hour 563.6 H Troponin I Hi Sens Del 420.6 H* Troponin T Baselin e Troponin T 120 Min torres martinez Delta Troponin T Total Protein Albumin Globulin Triglycerides 235 H Cholesterol 117 LDL Cholesterol, C alc 43 L HDL Cholesterol 27 L LDL/HDL Ratio 1.59 Cholesterol/HDL Ra noe 4.33 TSH 02/05/20 02/05/20 02/04/20 01:20 01:20 20:54 WBC 6.7 RBC 4.95 Hgb 14.1 Hct 42.2 MCV 85.3 MCH 28.5 MCHC 33.4 RDW 14.2 Plt Count 249 MPV 9.9 Neut % (Auto) 69.8 Lymph % (Auto) 20.7 Noble % (Auto) 6.0 Eos % (Auto) 2.6 Baso % (Auto) 0.3 Neut # (Auto) 4.7 Lymph # (Auto) 1.4 Noble # (Auto) 0.4 Eos # (Auto) 0.2 Baso # (Auto) 0.0 Nucleated RBC % (a uto) 0 Nucleated RBCs # 0.0 PT INR Sodium 140 Potassium 4.1 Chloride 104 Carbon Dioxide 24 Anion Gap 16.1 BUN 13 Creatinine 0.8 GFR Calculation 97.6 Glucose 97 Estimat Average Gl ucose Hemoglobin A1c Calculated Osmolal ity 286 Calcium 9.1 Magnesium 2.3 Total Bilirubin AST ALT Alkaline Phosphata se Troponin I 6 Hour Troponin I Hi Sens Del Troponin T Baselin e Troponin T 120 Min torres martinez 291.4 H Delta Troponin T 148.4 H* Total Protein Albumin Globulin Triglycerides Cholesterol LDL Cholesterol, C alc HDL Cholesterol LDL/HDL Ratio Cholesterol/HDL Ra noe TSH 02/04/20 02/04/20 02/04/20 19:18 19:18 19:18 WBC RBC Hgb Hct MCV MCH MCHC RDW Plt Count MPV Neut % (Auto) Lymph % (Auto) Noble % (Auto) Eos % (Auto) Baso % (Auto) Neut # (Auto) Lymph # (Auto) Noble # (Auto) Eos # (Auto) Baso # (Auto) Nucleated RBC % (a uto) Nucleated RBCs # PT INR Sodium 135 L Potassium 4.1 Chloride 101 Carbon Dioxide 21 L Anion Gap 17.1 BUN 12 Creatinine 0.8 GFR Calculation 97.6 Glucose 94 Estimat Average Gl ucose Hemoglobin A1c Calculated Osmolal ity 276 L Calcium 9.2 Magnesium Total Bilirubin 0.5 AST 33 ALT 24 Alkaline Phosphata se 68 Troponin I 6 Hour Troponin I Hi Sens Del Troponin T Baselin e 143 H* Troponin T 120 Min torres martinez Delta Troponin T Total Protein 7.5 Albumin 4.5 Globulin 3.0 Triglycerides Cholesterol LDL Cholesterol, C alc HDL Cholesterol LDL/HDL Ratio Cholesterol/HDL Ra noe TSH 4.66 H 02/04/20 02/04/20 19:18 19:18 WBC 8.4 RBC 5.48 H Hgb 15.5 Hct 46.8 MCV 85.4 MCH 28.3 MCHC 33.1 RDW 14.0 Plt Count 272 MPV 10.0 Neut % (Auto) 71.3 Lymph % (Auto) 18.3 Noble % (Auto) 6.9 Eos % (Auto) 2.5 Baso % (Auto) 0.4 Neut # (Auto) 6.0 Lymph # (Auto) 1.5 Noble # (Auto) 0.6 Eos # (Auto) 0.2 Baso # (Auto) 0.0 Nucleated RBC % (a uto) 0 Nucleated RBCs # 0.0 PT 12.50 INR 0.91 Sodium Potassium Chloride Carbon Dioxide Anion Gap BUN Creatinine GFR Calculation Glucose Estimat Average Gl ucose Hemoglobin A1c Calculated Osmolal ity Calcium Magnesium Total Bilirubin AST ALT Alkaline Phosphata se Troponin I 6 Hour Troponin I Hi Sens Del Troponin T Baselin e Troponin T 120 Min torres martinez Delta Troponin T Total Protein Albumin Globulin Triglycerides Cholesterol LDL Cholesterol, C alc HDL Cholesterol LDL/HDL Ratio Cholesterol/HDL Ra noe TSH Vitals: Last Vital Signs Temp 98.3 F 02/05/20 15:24 Pulse 55 L 02/05/20 16:38 Resp 22 H 02/05/20 15:24 BP 120/57 02/05/20 16:38 Pulse Ox 96 02/05/20 16:38 Discharge Plan Discharge Patient Disposition: Home, Self-Care Condition: Stable Prescriptions: New atorvastatin 40 mg Tablet 80 mg PO DAILY Qty: 30 RF: 0 lisinopril 5 mg Tablet 5 mg PO DAILY Qty: 30 RF: 0 nitroglycerin 0.4 mg tablet, sublingual 0.4 mg SUBLINGUAL Q5M PRN (Reason: chest pain) Qty: 30 RF: 0 clopidogrel 75 mg tablet 75 mg PO DAILY Qty: 30 RF: 3 Continued omega-3 fatty acids [Fish Oil Concentrate] 1,000 mg capsule 1,000 mg PO DAILY RF: 0 levothyroxine 100 mcg capsule 100 mcg PO QDAY 30 Days Qty: 30 RF: 5 tamsulosin 0.4 mg capsule 0.4 mg PO QDAY 30 Days Qty: 30 RF: 11 triamcinolone acetonide 0.1 % cream 1 applic TOPICAL BID Qty: 30 RF: 2 Discharge Orders: Discharge Order (Routine); Ordered 02/05/20 Ordered By: An Denson Referrals: Primary, Care Provider [Other] - 7-10 days Jennifer Aleman MD [Physician] - 7-10 days Discharge Diet: Cardiac Discharge Activity: Limit activity as instructed Activity Restrictions/Additional Instructions: Activity as per post cardiac catheterization instructions Discharge Attestations Time Spent in Discharge Care*: greater than 30 min Time Spent in Smoking Cessation: Time spent discussing smoking cessation with patient: 3 to 10 minutes Details of Smoking Cessation Education: Explained the importance of smoking cessation in terms of overall cardiac health. Emphasized that along with taking medications as prescribed it was the #1 thing that he could do Quality Metrics Clinical Quality Measures During this hospital stay, did patient experience: AMI Clinical Trial Participant: No Contraindication to aspirin (AMI): Aspirin given Contraindication to statin: Statin prescribed Contraindication to PCI: PCI performed Contraindication to Fibrinolytics: Drug treatment not indicated Coding Level of Care Code Acute Stem Threshing Machine Operator for Chg Fwd Diagnoses Non-ST elevation NM (NSTEMI) I21.4 Essential hypertension I10 CAD (coronary artery disease) I25.110 Associated angina: with unstable angina Coronary Disease-Associated Artery/Lesion type: [place] artery [place] vs. transplanted heart: [place] heart H/O heart artery stent Z95.5 Tobacco abuse Z72.0
--- NOTE | 2020-02-05 20:58 | PC.NURSE ---
patients iv removed in tact, covered with gauze and coban. patient tolerated well. patient educated on care to right wrist puncture, new meds, follow up appts and what to watch for for any problems to the site. patient stable and wheeled down to ER in wheelchair to go home with his girlfriend in teir personal vehicle.
== END 2020-02-05 21:00 | disposition home or self-care (01) | DRG 247 ==
LOC: ER 20:49 → MEDSURG 23:43
PROVIDERS: Internal Medicine; Admitting Provider Internal Medicine Cardiovascular Disease; Emergency Provider Emergency Medicine; PCP Family Medicine; Visit Provider Hospitalist
DX: I21.4 Non-ST elevation (NSTEMI) myocardial infarction (principal); F17.210 Nicotine dependence, cigarettes, uncomplicated; E03.9 Hypothyroidism, unspecified; N40.1 Benign prostatic hyperplasia with lower urinary tract symptoms; L30.9 Dermatitis, unspecified; I10 Essential (primary) hypertension; Z89.021 Acquired absence of right finger(s); K21.9 Gastro-esophageal reflux disease without esophagitis; I25.110 Atherosclerotic heart disease of native coronary artery with unstable angina pectoris
CPT/HCPCS: 12345; 36415; 71045; 80048; 80053; 80061; 83036; 83735; 84443; 84484; 85025; 85347; 85610; 93005; 93306; 93454; 96372; 99283; C1725; C1769; C1874; C1887; C1894; C9600; G0378; J1644; J1650; J2001; J2250; J3010; J3490; J7030; Q0163; Q9967

== ENCOUNTER → 2020-07-07 10:10 | Outpatient (BNVA) | payer MEDICARE, MEDICAID, SELFPAY | PROVIDERS: PCP Nurse Practitioner; Visit Provider Family Medicine Adult Medicine | DX: E03.9 Hypothyroidism, unspecified (principal); I10 Essential (primary) hypertension; I25.110 Atherosclerotic heart disease of native coronary artery with unstable angina pectoris; E78.5 Hyperlipidemia, unspecified; R73.03 Prediabetes; I21.4 Non-ST elevation (NSTEMI) myocardial infarction; N40.1 Benign prostatic hyperplasia with lower urinary tract symptoms | CPT/HCPCS: 80053; 80061; 83036; 84443; 85025 ==

== ENCOUNTER → 2021-01-02 10:30 | Outpatient (BNVA) | payer MEDICARE, MEDICAID, SELFPAY | PROVIDERS: PCP Family Medicine Adult Medicine; Visit Provider Family Medicine Adult Medicine | DX: N40.1 Benign prostatic hyperplasia with lower urinary tract symptoms (principal); R35.0 Frequency of micturition; R73.03 Prediabetes; I25.110 Atherosclerotic heart disease of native coronary artery with unstable angina pectoris; I50.32 Chronic diastolic (congestive) heart failure; E78.5 Hyperlipidemia, unspecified; E03.9 Hypothyroidism, unspecified; Z72.0 Tobacco use; L30.9 Dermatitis, unspecified; M15.9 Polyosteoarthritis, unspecified; I11.0 Hypertensive heart disease with heart failure | CPT/HCPCS: 80053; 80061; 83036; 84153; 84443; 85025 ==

== ENCOUNTER → 2021-09-28 09:16 | Outpatient (BNVA) | payer MEDICARE, MEDICAID, SELFPAY | PROVIDERS: PCP Family Medicine Adult Medicine; Visit Provider Family Medicine Adult Medicine | DX: E78.5 Hyperlipidemia, unspecified (principal); I10 Essential (primary) hypertension; I25.110 Atherosclerotic heart disease of native coronary artery with unstable angina pectoris | CPT/HCPCS: 80053; 80061; 84443; 85025 ==

== ENCOUNTER → 2022-10-01 08:47 | Outpatient (BNVA) | payer MEDICARE, MEDICAID, SELFPAY | PROVIDERS: PCP Family Medicine Adult Medicine; Visit Provider Family Medicine Adult Medicine | DX: I11.0 Hypertensive heart disease with heart failure (principal); I50.32 Chronic diastolic (congestive) heart failure; R73.09 Other abnormal glucose; E03.9 Hypothyroidism, unspecified; I25.110 Atherosclerotic heart disease of native coronary artery with unstable angina pectoris; E78.5 Hyperlipidemia, unspecified | CPT/HCPCS: 80053; 80061; 83036; 84443; 85025 ==

== ENCOUNTER → 2023-04-06 13:22 | Outpatient (BNVA) | payer MEDICARE, MEDICAID, SELFPAY | PROVIDERS: PCP Family Medicine Adult Medicine; Visit Provider Family Medicine Adult Medicine | DX: C44.519 Basal cell carcinoma of skin of other part of trunk (principal) | CPT/HCPCS: 88304 ==

== ENCOUNTER → 2024-01-11 09:59 | Outpatient (BNVA) | payer MEDICARE, MEDICAID, SELFPAY | PROVIDERS: PCP Family Medicine Adult Medicine; Visit Provider Family Medicine Adult Medicine | DX: N40.1 Benign prostatic hyperplasia with lower urinary tract symptoms (principal); R35.1 Nocturia; I10 Essential (primary) hypertension; I25.110 Atherosclerotic heart disease of native coronary artery with unstable angina pectoris; R73.03 Prediabetes; E03.9 Hypothyroidism, unspecified | CPT/HCPCS: 80053; 83036; 84443; 85025; G0103 ==

== ENCOUNTER → 2024-10-16 09:15 | Outpatient (BNVA) | payer MEDICARE, SELFPAY | PROVIDERS: PCP Family Medicine; Visit Provider Family Medicine | DX: I50.30 Unspecified diastolic (congestive) heart failure (principal); E03.9 Hypothyroidism, unspecified | CPT/HCPCS: 80053; 80061; 84439; 84443; 85025 ==

== ENCOUNTER → 2024-10-19 09:52 | Outpatient (BNVA) | payer MEDICARE, SELFPAY | PROVIDERS: PCP Family Medicine; Referring Provider Family Medicine; Visit Provider Surgery | DX: K21.9 Gastro-esophageal reflux disease without esophagitis (principal); K92.2 Gastrointestinal hemorrhage, unspecified | CPT/HCPCS: 99204 ==

== ENCOUNTER → 2024-12-12 09:10 | Outpatient (BNVA) | payer MEDICARE, SELFPAY | PROVIDERS: PCP Family Medicine; Visit Provider Family Medicine | DX: E03.9 Hypothyroidism, unspecified (principal); M15.9 Polyosteoarthritis, unspecified; I10 Essential (primary) hypertension; I50.30 Unspecified diastolic (congestive) heart failure; I25.110 Atherosclerotic heart disease of native coronary artery with unstable angina pectoris; E78.2 Mixed hyperlipidemia; N40.1 Benign prostatic hyperplasia with lower urinary tract symptoms; R35.0 Frequency of micturition; R37 Sexual dysfunction, unspecified; Z72.0 Tobacco use; Z71.6 Tobacco abuse counseling; Z12.11 Encounter for screening for malignant neoplasm of colon; Z12.12 Encounter for screening for malignant neoplasm of rectum; M54.31 Sciatica, right side | CPT/HCPCS: 84439; 84443 ==

== ENCOUNTER → 2025-04-09 08:45 | Outpatient (BNVA) | payer MEDICARE, SELFPAY | PROVIDERS: PCP Family Medicine; Visit Provider Family Medicine | DX: E03.9 Hypothyroidism, unspecified (principal) | CPT/HCPCS: 84439; 84443 ==